=== PATIENT | female | born 1935 | race Caucasian/White ===

== ENCOUNTER 2019-04-08 21:29 | Emergency (ER) | payer OTHER ==
[~2019-04-08] VITALS: Ht 152.4 cm; Wt 59.0 kg
[~2019-04-08 21:29] MED LIST: SYNTHROID50 MCG; ZOCOR20 MG
[2019-04-08] MEDS ORDERED: LOSARTAN (22:50)
[2019-04-09] MEDS ORDERED: CIPRO500 MG PO (16:22)
[2019-04-09] MEDS ORDERED: PROTONIX40 MG PO (16:22)
== END 2019-04-09 16:42 | disposition home or self-care (01) ==
LOC: ER 21:29
DX: N39.0 Urinary tract infection, site not specified (principal); R31.29 Other microscopic hematuria; R10.84 Generalized abdominal pain; I16.0 Hypertensive urgency; I10 Essential (primary) hypertension

== ENCOUNTER 2019-07-03 12:19 | Outpatient (CLI) | payer OTHER ==
[~2019-07-03 12:19] MED LIST changes: +CIPRO500 MG PO; +LOSARTAN; +PROTONIX40 MG PO
== END 2019-07-03 13:20 | disposition home or self-care (01) ==
LOC: RAD 12:19
DX: J44.1 Chronic obstructive pulmonary disease with (acute) exacerbation (principal); J32.8 Other chronic sinusitis; D64.89 Other specified anemias; E03.8 Other specified hypothyroidism; I11.9 Hypertensive heart disease without heart failure; Z68.27 Body mass index [BMI] 27.0-27.9, adult

== ENCOUNTER 2022-05-18 13:17 | Outpatient (CLI) | payer OTHER | END 2022-05-18 13:20 | disposition home or self-care (01) | LOC: LAB 13:17 | PROVIDERS: ATTEND Radiology Diagnostic Radiology | DX: R10.30 Lower abdominal pain, unspecified (principal) ==

== ENCOUNTER 2022-05-24 10:16 | Outpatient (CLI) | payer OTHER | END 2022-05-24 10:31 | disposition home or self-care (01) | LOC: MRI 10:16 | PROVIDERS: ATTEND Neuromusculoskeletal Medicine & OMM | DX: I70.8 Atherosclerosis of other arteries (principal); I65.23 Occlusion and stenosis of bilateral carotid arteries | CPT/HCPCS: 70548; Q9965; 70549 ==

== ENCOUNTER 2022-12-28 11:54 | Outpatient (CLI) | payer OTHER | END 2022-12-28 12:00 | disposition home or self-care (01) | LOC: RAD 11:54 | PROVIDERS: ATTEND Internal Medicine | DX: M54.2 Cervicalgia (principal) ==

== ENCOUNTER 2023-04-05 09:26 | Outpatient (CLI) | payer OTHER | END 2023-04-05 09:32 | disposition home or self-care (01) | LOC: NUCLEAR 09:26 | PROVIDERS: ATTEND Internal Medicine | DX: R01.1 Cardiac murmur, unspecified (principal); R00.2 Palpitations ==

== ENCOUNTER 2023-04-06 12:41 | Outpatient (CLI) | payer OTHER | END 2023-04-06 12:50 | disposition home or self-care (01) | LOC: MRI 12:41 | PROVIDERS: ATTEND Neuromusculoskeletal Medicine & OMM | DX: F03.90 Unspecified dementia, unspecified severity, without behavioral disturbance, psychotic disturbance, mood disturbance, and anxiety (principal); F09 Unspecified mental disorder due to known physiological condition | CPT/HCPCS: 70551 ==

== ENCOUNTER 2024-12-05 08:42 | Outpatient (CLI) | payer OTHER | END 2024-12-05 08:56 | disposition home or self-care (01) | LOC: TOM 08:42 | PROVIDERS: ATTEND Internal Medicine | DX: R10.9 Unspecified abdominal pain (principal); R01.1 Cardiac murmur, unspecified; N18.2 Chronic kidney disease, stage 2 (mild); R39.15 Urgency of urination; E78.00 Pure hypercholesterolemia, unspecified; I73.9 Peripheral vascular disease, unspecified; I83.91 Asymptomatic varicose veins of right lower extremity; I11.9 Hypertensive heart disease without heart failure; E03.8 Other specified hypothyroidism; E55.9 Vitamin D deficiency, unspecified ==

== ENCOUNTER 2025-05-18 13:27 | Outpatient (CLI) | payer OTHER | END 2025-05-18 13:31 | disposition home or self-care (01) | LOC: RAD 13:27 | PROVIDERS: ATTEND General Practice | DX: S69.92XA Unspecified injury of left wrist, hand and finger(s), initial encounter (principal); M25.532 Pain in left wrist; Z91.81 History of falling; S80.911A Unspecified superficial injury of right knee, initial encounter ==

== ENCOUNTER 2025-05-28 14:21 | Outpatient (CLI) | payer OTHER | END 2025-05-28 14:29 | disposition home or self-care (01) | LOC: RAD 14:21 | PROVIDERS: ATTEND General Practice | DX: M25.532 Pain in left wrist (principal); S69.92XS Unspecified injury of left wrist, hand and finger(s), sequela; X58.XXXS Exposure to other specified factors, sequela ==